=== PATIENT | male | born 1955 | race Two or more races ===

== ENCOUNTER 2022-07-18 12:39 | Outpatient (CLI) | payer OTHER | END 2022-07-18 12:41 | disposition home or self-care (01) | LOC: LAB 12:39 | PROVIDERS: ATTEND Urology | DX: N30.00 Acute cystitis without hematuria (principal) ==

== ENCOUNTER 2022-07-26 09:55 | Outpatient (CLI) | payer OTHER ==
[2022-07-30] MEDS ORDERED: JANUMET XR 1001 EACH PO (14:34)
[2022-07-30] MEDS ORDERED: SIMVAST PO (14:34)
[2022-07-30] MEDS ORDERED: ZESTRIL5 MG PO (14:34)
== END 2022-07-26 09:58 | disposition home or self-care (01) ==
LOC: TOM 09:55
PROVIDERS: ATTEND Urology
DX: C66.1 Malignant neoplasm of right ureter (principal)

== ENCOUNTER 2022-07-27 09:00 | Outpatient (CLI) | payer OTHER ==
[2022-07-30] MEDS ORDERED: JANUMET XR 1001 EACH PO (14:34)
[2022-07-30] MEDS ORDERED: SIMVAST PO (14:34)
[2022-07-30] MEDS ORDERED: ZESTRIL5 MG PO (14:34)
== END 2022-07-27 09:02 | disposition home or self-care (01) ==
LOC: NUCLEAR 09:00
PROVIDERS: ATTEND Urology
DX: C66.1 Malignant neoplasm of right ureter (principal)
CPT/HCPCS: 78709; A9539

== ENCOUNTER 2022-08-01 05:03 | Day surgery (SDC) | payer OTHER ==
[~2022-08-01] VITALS: Ht 157.5 cm; Wt 67.1 kg
[~2022-08-01 05:03] MED LIST: JANUMET XR 1001 EACH PO; SIMVAST PO; ZESTRIL5 MG PO
== END 2022-08-01 14:05 | disposition home or self-care (01) ==
LOC: CIR.AMB 05:03
PROVIDERS: ATTEND Urology
DX: C66.1 Malignant neoplasm of right ureter (principal); C79.11 Secondary malignant neoplasm of bladder; I10 Essential (primary) hypertension; E11.9 Type 2 diabetes mellitus without complications; Z79.84 Long term (current) use of oral hypoglycemic drugs; Z87.891 Personal history of nicotine dependence; Z20.822 Contact with and (suspected) exposure to COVID-19

== ENCOUNTER 2022-08-20 07:33 | Outpatient (CLI) | payer OTHER | END 2022-08-20 15:52 | disposition home or self-care (01) | LOC: NUCLEAR 07:33 | PROVIDERS: ATTEND Urology | DX: C67.9 Malignant neoplasm of bladder, unspecified (principal) | CPT/HCPCS: 78815; A9552 ==

== ENCOUNTER → 2022-08-31 | Outpatient (CLI) | payer OTHER | END | disposition home or self-care (01) | LOC: NUCLEAR 07:11 | PROVIDERS: ATTEND Urology | DX: I65.1 Occlusion and stenosis of basilar artery (principal); I25.119 Atherosclerotic heart disease of native coronary artery with unspecified angina pectoris | CPT/HCPCS: 78452; 93017; A9500; J0153 ==

== ENCOUNTER 2022-10-01 07:07 | Outpatient (CLI) | payer OTHER | END 2022-10-01 07:24 | disposition home or self-care (01) | LOC: RAD 07:07 | PROVIDERS: ATTEND Urology | DX: C67.9 Malignant neoplasm of bladder, unspecified (principal) | CPT/HCPCS: 72193; 76770; Q9965 ==

== ENCOUNTER 2023-01-04 07:12 | Outpatient (CLI) | payer OTHER | END 2023-01-04 07:14 | disposition home or self-care (01) | LOC: NUCLEAR 07:12 | DX: C67.9 Malignant neoplasm of bladder, unspecified (principal) | CPT/HCPCS: 78815; A9552 ==

== ENCOUNTER 2023-05-28 07:11 | Outpatient (CLI) | payer OTHER | END 2023-05-28 07:24 | disposition home or self-care (01) | LOC: TOM 07:11 | PROVIDERS: ATTEND Urology | DX: C67.9 Malignant neoplasm of bladder, unspecified (principal) ==

== ENCOUNTER 2023-12-24 07:03 | Outpatient (CLI) | payer OTHER | END 2023-12-24 07:12 | disposition home or self-care (01) | LOC: RAD 07:03 | PROVIDERS: ATTEND Urology | DX: C67.9 Malignant neoplasm of bladder, unspecified (principal); R31.1 Benign essential microscopic hematuria ==

== ENCOUNTER 2024-03-17 07:08 | Outpatient (CLI) | payer OTHER | END 2024-03-17 07:09 | disposition home or self-care (01) | LOC: NUCLEAR 07:08 | DX: C67.4 Malignant neoplasm of posterior wall of bladder (principal) | CPT/HCPCS: 78816; A9552 ==